=== PATIENT | female | born 1960 | race Two or more races ===

== ENCOUNTER 2017-03-09 23:09 | Emergency (ER) | payer BC, OTHER ==
--- NOTE | 2017-03-09 23:15 | PDOC ---
History of Present Illness - General Chief Complaint: Pain Stated Complaint: EPIGASTRIC PAIN AND VOMITING Time Seen by Provider: 03/09/17 23:14 History Source: Patient Exam Limitations: No Limitations - History of Present Illness Initial Comments: 03/09/17 23:38 This is a healthy 56-year-old female who comes in complaining of epigastric pain times several hours. Patient said the pain began when she was driving from [place] after she ate some pretzels a banana and latte a [employer] latte. Patient denied any nausea or vomiting however she did vomit shortly after she got to the emergency room. Patient denies any fever, chills, diarrhea. Patient denied history of similar pain in the past. Patient denied any radiation to her chest with any associated shortness of breath or diaphoresis. Patient is otherwise healthy takes no medications. Patient denies family history of cardiac disease or gallstones or kidney stones. PAST MEDICAL HISTORY: no significant history PAST SURGICAL HISTORY: no significant history FAMILY HISTORY: no pertinant history SOCIAL HISTORY: Pt lives with family and is employed. MEDICATIONS: reviewed ALLERGIES: As per nursing notes Review of Systems General: No fevers or chills, no weakness, no weight loss HEENT: No change in vision. No sore throat,. No ear pain CardioVascular: No chest pain or shortness of breath Respiratory:No cough, or wheezing. Gastrointestinal: no nausea, vomitting, diarrhea or constipation, No rectal bleeding Genitourinary: No dysuria, hematuria, or frequency Musculoskeletal: No joint or muscle pain or swelling Neurologic: No headache, vertigo, dizziness or loss of consciousness Psychiatric: nor depression Skin: No rashes or easy bruising Endocrine: no increased thirst or abnormal weight change Allergic: no skin or latex allergy All other systems reviewed and normal Exam: General: Well-nourished well-developed individual, no acute distress HEENT: Throat: Normal, tonsils normal, no erythema or exudate Neck: Supple, no meningeal signs, no lymphadenopathy Eyes::Pupils equal reactive and round, extraocular motion intact Chest: Nontender to palpation Cardiac: S1-S2 normal, regular rate and rhythm, no murmurs rubs or gallops Respiratory: Lungs clear to auscultation bilateral Abdomen: Soft, nondistended, normal bowel sounds, moderately tender to palpation epigastric, no guarding or rebound. Extremities: Warm, dry, no cyanosis, clubbing, or edema Skin: No rashes Neuro: Alert and oriented x3, nonfocal exam, grossly intact, normal gait Psych: Normal mood and affect Reevaluation post simethicone and Pepcid. Patient's pain has nearly resolved at this time she feels much better. Assessment and plan: This is a 56-year-old female who comes in complaining of epigastric upper abdominal pain. Patient was treated with simethicone and Pepcid with almost complete resolution of her pain and a workup was done including ultrasound Ultrasound was negative for any acute pathology including no gallstones or gallbladder pathology. Workup was normal including normal CBC and chemistries. Patient discharged home post workup feeling better and will follow-up with her primary care doctor as needed Past History - Past Medical History Allergies/Adverse Reactions: Allergies Allergy/AdvReac Type Severity Reaction Status Date / Time No Known Allergies Allergy Verified 09/17/15 13:26 Home Medications: Ambulatory Orders NK [No Known Home Medication] 09/17/15 GI Disorders: Yes (COLON POLYPS, RT COLON ADENOMA) - Psycho/Social/Smoking Cessation Hx Smoking History: Never smoked Have you smoked in the past 12 months: No Hx Alcohol Use: Yes (SOCIAL) Drug/Substance Use Hx: No Substance Use Type: None ED Treatment Course - LABORATORY CBC & Chemistry Diagram: 03/09/17 23:40 03/09/17 23:40 *DC/Admit/Observation/Transfer Diagnosis at time of Disposition: Epigastric abdominal pain - Discharge Dispostion Disposition: HOME Condition at time of disposition: Good Admit: No - Patient Instructions Additional Instructions: Return to the emergency department immediately with ANY new, persistent or worsening symptoms. Continue any medications as previously prescribed by your physician. You should follow up with your primary doctor as soon as possible regarding today's emergency department visit. . Please make sure your doctor reviews the results of your emergency evaluation. Thank you for coming to the Emergency Department today for your care. It was a pleasure to see you today. Please note that your evaluation is INCOMPLETE until you follow-up with your doctor.
[2017-03-09] MEDS ORDERED: morphine CARPU-JECT 2 MG/1 ML DISP.SYRIN IVPUSH ONE (23:22)
[2017-03-09] MEDS ORDERED: FAMOTIDINE 20 MG/50 ML IVPB 50 ML IVPB ONE ×2 (23:22→23:44)
[2017-03-09] MEDS ORDERED: morphine CARPU-JECT 2 MG/1 ML DISP.SYRIN ONE (23:43)
[2017-03-10 00:07] VITALS: TEMP 98.4; BMI 28.3
[2017-03-10] MEDS ORDERED: SIMETHICONE 40 MG/0.6 ML BOTTLE PO STA (00:26)
[2017-03-10] MEDS ORDERED: SIMETHICONE 80 MG TAB.CHEW (FP) ONE (00:27)
[2017-03-10] MEDS ORDERED: SIMETHICONE 80 MG TAB.CHEW (FP) PO STA (00:29)
[2017-03-10 01:19] LABS: BASOPHIL 0.3 % (0-2.0); EOSINOPHIL 1.3 % (0-4.5); MCHC 32.8 g/dl (32.0-36.0); MEAN CELL VOLUME 88.4 fl (80-96); MEAN PLT VOLUME 8.5 fl (7.5-11.1); NEUTROPHILS 69.8 % (42.8-82.8); PLATELET COUNT 317 K/MM3 (134-434); RDW 13.3 % (11.6-15.6); WHITE BLOOD COUNT 9.3 K/mm3 (4.0-10.0)
[2017-03-10 01:45] LABS: ALBUMIN 3.9 g/dl (3.4-5.0); ALK PHOS 77 U/L (45-117); ANION GAP 10 (8-16); BILIRUBIN,TOTAL 0.4 mg/dL (0.2-1.0); CALCIUM 9.4 mg/dL (8.5-10.1); CO2 31 mmol/L (21-32); CREATININE 0.7 mg/dL (0.55-1.02); GLUCOSE,RANDOM 116 mg/dL (74-106); SGPT/ALT 26 U/L (12-78); TOT PROT 7.7 g/dl (6.4-8.2)
[2017-03-10 01:46] LABS: SGOT/AST 34 U/L (15-37)
[2017-03-10 02:00] VITALS: BP 135/80; PULSE 85
[2017-03-10 02:00] LABS: CPK 98 IU/L (26-192); TROPONIN I < 0.02 ng/ml (0.00-0.05)
--- NOTE | 2017-03-12 07:33 | EKG ---
Test Reason : Blood Pressure : / mmHG Vent. Rate : 097 BPM Atrial Rate : 097 BPM P-R Int : 178 ms QRS Dur : 082 ms QT Int : 350 ms P-R-T Axes : 042 -14 051 degrees QTc Int : 445 ms NORMAL SINUS RHYTHM POSSIBLE LEFT ATRIAL ENLARGEMENT LEFT VENTRICULAR HYPERTROPHY ABNORMAL ECG WHEN COMPARED WITH ECG OF 21-OCT-2004 13:08, QT HAS LENGTHENED Confirmed by JORGE CANALES MD ([id number]) on 03/12/2017 7:33:05 AM Referred By: MD CARTER Confirmed By:JORGE CANALES MD
== END 2017-03-10 03:03 | disposition home or self-care (01) ==
LOC: FER 23:09
PROC: 3E033GC Introduction of Other Therapeutic Substance into Peripheral Vein, Percutaneous Approach (ICD-10-PCS; principal; 2017-03-09)
PROC: 3E033NZ Introduction of Analgesics, Hypnotics, Sedatives into Peripheral Vein, Percutaneous Approach (ICD-10-PCS; 2017-03-09)
DX: R10.13 Epigastric pain (principal)
CPT/HCPCS: 36415; 71020-TC; 74020-TC; 76705-TC; 80053; 83690; 84484; 85025; 93005; 99283-25

== ENCOUNTER 2019-03-17 09:28 | Day surgery (SDC) | payer BC, OTHER ==
[2019-03-14 15:07] VITALS: BMI 30.2
[2019-03-17 11:53] VITALS: TEMP 98.3
[2019-03-17 12:16] VITALS: BP 127/60; PULSE 71
--- NOTE | 2019-03-18 13:40 | PATH ---
Surgical Pathology Report Patient Name: BETZY CARPENTER [facility]. Rec. #: [id number] /Age/Gender: 1960 (Age: 59) / F Account: [id number] Location: U-ENDOSCOPY Taken: 03/17/2019 Received: 03/17/2019 Reported: 03/18/2019 Physicians: Td Poe M.D. Specimen(s) Received A: POLYPS RECTUM B: POLYP RIGHT COLON Clinical History Polyp surveillance, family history of colon cancer Final Diagnosis A. RECTUM, POLYPS, BIOPSY: HYPERPLASTIC POLYP(S). B. COLON, RIGHT, POLYP, BIOPSY: TUBULAR ADENOMA. Electronically Signed Khadra Martin M.D. Gross Description A. Received in formalin, labeled "polyps rectum" are 2 carnes, irregular portions of soft tissue measuring 0.1 and 0.4 cm. in greatest dimension. The specimens are submitted in toto in one cassette. B. Received in formalin, labeled "polyp right colon" are 6 carnes, irregular portions of soft tissue ranging from 0.2-0.3 cm. in greatest dimension. The specimens are submitted in toto in one cassette. DL/03/17/2019 saudi03/17/2019
== END 2019-03-17 12:40 | disposition home or self-care (01) ==
LOC: JASU-ENDO 09:28
PROVIDERS: ATTEND Internal Medicine Gastroenterology
PROC: 0DBP8ZX Excision of Rectum, Via Natural or Artificial Opening Endoscopic, Diagnostic (ICD-10-PCS; 2019-03-17)
PROC: 0DBF8ZX Excision of Right Large Intestine, Via Natural or Artificial Opening Endoscopic, Diagnostic (ICD-10-PCS; 2019-03-17)
PROC: 0DBK8ZX Excision of Ascending Colon, Via Natural or Artificial Opening Endoscopic, Diagnostic (ICD-10-PCS; principal; 2019-03-17 10:45)
DX: Z12.11 Encounter for screening for malignant neoplasm of colon (principal); Z80.0 Family history of malignant neoplasm of digestive organs; K57.30 Diverticulosis of large intestine without perforation or abscess without bleeding; K64.8 Other hemorrhoids; K62.1 Rectal polyp; D12.2 Benign neoplasm of ascending colon
CPT/HCPCS: 88305-TC

== ENCOUNTER 2020-10-30 22:16 | Emergency (ER) | payer BC, OTHER ==
[2020-10-30 22:29] VITALS: BP 175/86; PULSE 96; TEMP 98.8; BMI 29.7
== END 2020-10-30 22:48 | disposition home or self-care (01) ==
LOC: FER 22:16
DX: R05 Cough (principal); Z20.822 Contact with and (suspected) exposure to COVID-19
CPT/HCPCS: 99283-25; C9803; U0003

== ENCOUNTER 2024-05-14 04:22 | Day surgery (SDC) | payer BC, OTHER ==
[2024-05-06 15:08] VITALS: BMI 31.0
[2024-05-14] MEDS ORDERED: EPINEPHrine/PF 1 MG/1 ML (1:1,000) AMPULE ONE (07:16)
[2024-05-14] MEDS ORDERED: LIDOCAINE HCL/PF 1% SDV 5ML VIAL ONE (07:16)
[2024-05-14] MEDS ORDERED: BSS (NA/CA/MG/K) BALANCED SALT SOLUTION OPHTH SOLN 15 ML BOTTLE ONE (07:17)
[2024-05-14] MEDS ORDERED: POVIDONE-IODINE 5% OPHTHALMIC PREP 30 ML SOLUTION ONE (07:17)
[2024-05-14 11:47] VITALS: RESP 16
[2024-05-14 12:19] VITALS: BP 114/59; PULSE 84; TEMP 98
== END 2024-05-14 13:35 | disposition home or self-care (01) ==
LOC: JASU-ENDO 04:22
PROVIDERS: ATTEND Internal Medicine Gastroenterology
PROC: 0DBK8ZX Excision of Ascending Colon, Via Natural or Artificial Opening Endoscopic, Diagnostic (ICD-10-PCS; 2024-05-14)
PROC: 0DBL8ZX Excision of Transverse Colon, Via Natural or Artificial Opening Endoscopic, Diagnostic (ICD-10-PCS; 2024-05-14)
PROC: 0DBL8ZX Excision of Transverse Colon, Via Natural or Artificial Opening Endoscopic, Diagnostic (ICD-10-PCS; principal; 2024-05-14 11:00)
DX: Z12.11 Encounter for screening for malignant neoplasm of colon (principal); D12.3 Benign neoplasm of transverse colon; K63.5 Polyp of colon; K59.89 Other specified functional intestinal disorders; K57.30 Diverticulosis of large intestine without perforation or abscess without bleeding; K64.8 Other hemorrhoids; Z86.0100 Personal history of colon polyps, unspecified; Z80.0 Family history of malignant neoplasm of digestive organs
CPT/HCPCS: 88305-TC